=== PATIENT | male | born 1940 | race Caucasian/White ===

== ENCOUNTER 2019-04-13 13:52 | Emergency (ER) | payer MEDICARE ==
[~2019-04-13] VITALS: Ht 177.8 cm; Wt 81.6 kg
--- NOTE | 2019-04-13 13:52 | NUR ---
Arrival to ER collapsing between electronic doorway into ED witnessed down by accounts payables clerk. Call for help and staff analyst/PCCT/Radiology staff present to assess, pulseless and apneic. CPR started. Cart obtained and pt transferrred onto cart with 4 staff. BVM being obtained. Compressions continue.
--- NOTE | 2019-04-13 14:00 | NUR ---
BVM bagging with CPR monitored by rotary drier feeder wave forms and Louis monitor fast patches. Pt is rattling and copious secrections coming up orally. Suction being set up, intubation being set up, IV lines being prepared. Pt has presented in a very dusky near purple coloring in face and upper chest at this time.
--- NOTE | 2019-04-13 14:02 | NUR ---
Noted NIBP 161/117
--- NOTE | 2019-04-13 14:05 | NUR ---
IV's intact bilateral. Dr is attempting at intubation with some difficulty and BVM continues.
--- NOTE | 2019-04-13 14:06 | NUR ---
EPI 1 amp continued CPR, initial rhythm is bradycardic-juctional- PEA
--- NOTE | 2019-04-13 14:13 | NUR ---
Attempting at intubation again with noting pt's abd is appearing distended. Incont urine and bowel occured. CPR continues. Pt is being suctioned and is frothy pink secretions and some blood tinging with intubation.
--- NOTE | 2019-04-13 14:15 | NUR ---
EPI 1 amp #2 given IVP. CPR continues. Intubation attempt pulled back. Bouge attempt being made. CPR continues. Pt pulse checks: pulseless and PEA as appears bradycardia and junctional on monitor.
--- NOTE | 2019-04-13 14:16 | NUR ---
Amp of Atropine given per Dr Serrano order. Continue CPR/bagging.
--- NOTE | 2019-04-13 14:17 | NUR ---
Pt intubated successful, color chg noted in CO2 detector and by auscultation. Continue CPR and BVM to ET per ACLS protocol.
--- NOTE | 2019-04-13 14:19 | NUR ---
EPI 1 amp #3 given IVP. Pt pulse checks in 2 min cycles No ROSC, continued PEA with CPR resuming and bagging.
[2019-04-13] MEDS ORDERED: EPINEPHrine 0.1 MG/ML 10 ML (HOSPIRA) SYR IJ ONE (14:20)
[2019-04-13] MEDS ORDERED: ATROPINE INJECTION 1 MG/10 ML SYR (ABBOTT) INJ ONE (14:20)
[2019-04-13] MEDS ORDERED: CATHETER FLUSH 10 ML SYR IV ONE (14:20)
--- NOTE | 2019-04-13 14:21 | NUR ---
EPI 1 amp #4 given. Pt remains pulseless PEA. Pt is producing copius frothy pink secretions requiring suctioning. Dr assisting with airway management and suctioning. RN's with medications, bagging, and rotating CPR with system support technician. PCCT present assisting patient care and supplies
--- NOTE | 2019-04-13 14:23 | NUR ---
Bedside ultrasound used per Dr Serrano to confirm continued no heart beat as evidenced as pulseless PEA becoming asystole.
[2019-04-13 14:24] VITALS: BP 0/0
--- NOTE | 2019-04-13 14:24 | NUR ---
Pt was pronounced per Dr Serrano.
--- NOTE | 2019-04-13 14:30 | NUR ---
Call to [employer] to inform of events and concerns. No prior [facility] accts. No Social Security card to look at prior [facility] records. No contacts in patient [place]. Plan call [employer] to assist with finding a next of kin, check home residence.
--- NOTE | 2019-04-13 14:45 | NUR ---
DAIN Merchant arriving to ask a few questions as dispatched by PD to go [place].
--- NOTE | 2019-04-13 14:48 | ED CPR ---
HPI-CPR History of Present Illness Date Seen by Provider: Apr 13, 2019 Time Seen by Provider: 13:52 Initial Comments 78-year-old white male walked into the waiting room and collapsed. Patient was quickly brought into the emergency department. He was pulseless and nonbreathing. Patient had basic life support initiated. Patient was bagged on 100 percent oxygen. He received multiple doses of IV epinephrine and atropine. The patient demonstrated a marked bradycardia on monitor. No pulse was appreciated. The patient was intubated with an number 8 endotracheal tube and he demonstrated good colorimetric change with the CO detector in line. The patient's resuscitation was continued. Ultrasound was utilized to visualize any cardiac activity of which there was none. After discussion with the team the patient's resuscitative efforts were discontinued at 1423. Early information suggests that the patient was under the care of Dr. Lofton. I have placed a call to Dr. Lofton to visit with him about the patient. Allergies and Home Medications Allergies Coded Allergies: No Known Drug Allergies (Unverified , 04/13/19) Patient Home Medication List Home Medication List Reviewed: Yes Review of Systems Review of Systems Constitutional: no symptoms reported Physical Exam Vital Signs Capillary Refill : Height, Weight, BMI Height: '" Weight: lbs. oz. kg; BMI Method: General Appearance: Other (pulseless and nonbreathing) HEENT: Normal ENT Inspection Neck: Normal Inspection (no evidence of trauma) Respiratory: Other (frothy sputum) Cardiovascular: Other (no pulse) Gastrointestinal: Soft, Distended Extremity: Other (cyanotic) Neurologic/Psychiatric: Other (unresponsive) Skin: Cyanosis Progress/Results/Core Measures Progress Progress Note : Time: 14:49 Progress Note The patient failed response to resuscitation and was pronounced at 1423. Departure Impression Primary Impression: Cardiac arrest Disposition: 20 Condition: CRISTIANE VILLARREAL MD Apr 13, 2019 14:48
--- NOTE | 2019-04-13 15:00 | NUR ---
[employer] finding a social security number for pt. Will use as resource for [facility] records.
--- NOTE | 2019-04-13 15:07 | NUR ---
[facility] contacted and was authorized to release as patient not a candidate.
--- NOTE | 2019-04-13 15:10 | NUR ---
Attempting to reach Dr Lofton via a cell phone to return call. Last PCP on file. Call to pt's next of kin on file in [facility] records, Libra Sofie [phone]. Message left on her voicemail to call [facility] ED dept with our number.
--- NOTE | 2019-04-13 15:35 | NUR ---
Call from Sheriff Merlos reporting patient house is unlocked with no signs of other family. Pt well known to others to be a single man with a significant other "girlfriend". [place] Pt was just prior to this collapse dropped off by a friend Petey Arellano as pt's girlfriend was shipped to [facility] earlier today. Pt had been having trouble talking today for significant wet sounding cough and choking sounds noted by friends. Pt advised by his friend to get to a Dr and get seen. Pt was seen standing by his vehicle as friends drove away. Pt had not confirmed he was going to go into the ER.
[2019-04-13 16:08] LABS: HEMOGLOBIN 17.8 G/DL (13.3-17.7); WHITE BLOOD COUNT 8.8 10^3/uL (4.3-11.0)
[2019-04-13 16:09] LABS: MEAN PLATELET VOLUME 11.4 FL (7.4-10.4); RED CELL DISTRIBUTION WIDTH 13.5 % (10.0-14.5)
[2019-04-13 16:16] LABS: SODIUM 142 MMOL/L (135-145)
[2019-04-13 16:17] LABS: ALKALINE PHOSPHATASE 109 U/L (40-136); BUN/CREATININE RATIO 14; CALCIUM 9.5 MG/DL (8.5-10.1); CARBON DIOXIDE 26 MMOL/L (21-32); CHLORIDE 100 MMOL/L (98-107); CREATININE SERUM 1.18 MG/DL (0.60-1.30); GFR ESTIMATED 60; GLUCOSE 116 MG/DL (70-105); MAGNESIUM 2.4 MG/DL (1.6-2.4); POTASSIUM 4.9 MMOL/L (3.6-5.0)
[2019-04-13 16:18] LABS: ALANINE AMINOTRANSFERASE 30 U/L (0-55); ALBUMIN 4.4 GM/DL (3.2-4.5); TOTAL PROTEIN 7.7 GM/DL (6.4-8.2)
--- NOTE | 2019-04-13 16:29 | Diagnostic Imaging Report ---
INDICATION: Collapse. This is a postmortem evaluation. FINDINGS: Heart size is normal. There is moderate congestive failure. Endotracheal tube is in place. There is no pleural effusion or pneumothorax. IMPRESSION: Moderate congestive failure. Dictated by: Dictated on workstation # [id number]
--- NOTE | 2019-04-13 17:05 | NUR ---
Received return call from Libra Carrizales [phone], patient's sister as only next of kin. Libra had her son Juan C Carrizales also on phone line to listen. Patient is single. Family was given severe condolences to inform about the patient arriving to ER earlier and collapsing in the entrance doorway pulseless and apneic. Witnessed down and began CPR and transferred by 4 female staff to get up onto cart into ED. Dr Serrano and ER staff worked a 30 min code with intubation, CPR, and meds without reviving pt's heart. Family were asked to freely ask questions and all answered. Informed that Dr Lofton, PCP, was located via phone to inform of his passing. Dr Lofton will be signing pt's certificate as he has reported his known history with patient and encouragement to pt see a property management specialist and get a heart cath which he had not wished to pursue at that time. Family authorize body release to [facility] and will be arriving to [place] in next 24 hr. They were informed of the clothing cut of and body fluids on them and they wish them to be discarded after we have obtained all his personal effects into a belonging envelope for them to retrieve when arriving into [facility] [place] or [place].
--- NOTE | 2019-04-13 17:20 | NUR ---
Miguel A Christian notified of and request for body release per patient's sister Libra Carrizales via phone from [place].
--- NOTE | 2019-04-13 17:50 | NUR ---
Body release to [facility] as authorized per sister. All pt's belongings from pockets sent up to ED registration cabinet to await family arrival for sign out, Libra or Juan C Carrizales. Pt's upper denture released with body.
--- NOTE | 2019-04-13 22:30 | NUR ---
Add'l keys found in re-searching the patient's discarded cut clothing and under chairs near them. [place] to add'l envelope to registration desk.
== END 2019-04-13 14:24 | disposition expired ==
LOC: ER FS 14:19
DX: I46.9 Cardiac arrest, cause unspecified (principal)
CPT/HCPCS: 31500; 36415; 71045; 80053; 83735; 84484; 85027